=== PATIENT | female | born 1945 ===

== ENCOUNTER 2023-10-15 09:43 | Day surgery (SDC) | payer OTHER ==
[2023-10-15] MEDS ORDERED: MIDAZOLAM HCL 2 MG/2 ML VIAL IV ONE (15:15)
[2023-10-15] MEDS ORDERED: fentaNYL CITRATE 50 MCG/ML AMPUL IV PUSH ONE (15:15)
[2023-10-15] MEDS ORDERED: ONDANSETRON HCL 2 MG/ML VIAL IV ONE (15:15)
[2023-10-15] MEDS ORDERED: DIPHENHYDRAMINE HCL 50 MG/ML VIAL 1ML IV ONE (15:15)
== END 2023-10-15 16:25 | disposition home or self-care (01) ==
LOC: AMB-ENDOS 09:43
PROVIDERS: ATTEND Colon & Rectal Surgery
DX: K63.5 Polyp of colon (principal); K57.30 Diverticulosis of large intestine without perforation or abscess without bleeding; R15.9 Full incontinence of feces; Z88.0 Allergy status to penicillin